=== PATIENT | female | born 1945 | race Caucasian/White ===

== ENCOUNTER → 2016-08-13 | Outpatient (CLI) | payer OTHER | END | disposition home or self-care (01) | LOC: CDC 10:48 | DX: R00.1 Bradycardia, unspecified (principal); G56.01 Carpal tunnel syndrome, right upper limb; M79.641 Pain in right hand | CPT/HCPCS: 93000 ==

== ENCOUNTER 2017-03-31 18:12 | Inpatient (IN) | payer OTHER ==
[~2017-03-31] VITALS: Ht 157.5 cm; Wt 83.7 kg
[2017-03-31 19:50] LABS: APPEARANCE CLEAR ((CLEAR)); BILIRUBIN NEGATIVE; BLOOD MODERATE; COLOR YELLOW ((YELLOW)); GLUCOSE (STRIP) NEGATIVE; KETONES NEGATIVE; LEUKOCYTES NEGATIVE; NITRITE NEGATIVE; PROTEIN (STRIP) NEGATIVE; SPECIFIC GRAVITY 1.019 (1.000-1.030); UROBILINOGEN 0.2 MG/DL (0.2-1.0)
[2017-03-31 20:16] LABS: HEMATOCRIT 34.5 % (36.0-46.0); HEMOGLOBIN 11.7 G/DL (11.9-15.5); MCH 31.9 PG (29.0-34.0); MCHC 33.9 G/DL (30.0-36.0); PLATELET COUNT 168 K/uL (156-360); RBC DIS.WIDTH-CV 12.8 % (11.8-14.6); RBC DIS.WIDTH-SD 44.7 % (39-53); RED BLOOD COUNT 3.67 M/uL (3.80-5.20); WHITE BLOOD COUNT 5.6 K/uL (4.1-10.2)
[2017-03-31 20:33] LABS: CHLORIDE 112 mEq/L (99-109); GLUCOSE 111 mg/dL (70-99); MAGNESIUM 1.9 mg/dL (1.3-2.7); POTASSIUM 4.1 mEq/L (3.7-5.4); SODIUM 143 mEq/L (136-147)
[2017-03-31 20:36] LABS: CREATININE 0.8 mg/dL (0.6-1.3); GFR ESTIMATE (CALCULATED) > 59 mL/min/
[2017-03-31 20:37] LABS: UREA NITROGEN (BUN) 19 mg/dL (9-23)
[2017-03-31 20:39] LABS: CREATINE KINASE 56 IU/L (1-294)
[2017-03-31 20:58] LABS: BACTERIA NONE SEEN /HPF; EPITHELIAL CELLS RARE /HPF; MUCUS TRACE /LPF; WHITE BLOOD CELLS 0-5 /HPF (0-5)
[2017-03-31 21:17] LABS: TROP-I INTERPRETATION NEGATIVE; TROPONIN-I < 0.01 ng/mL (0.0-0.30)
[2017-03-31] MEDS ORDERED: SYNTHROID50 MCG PO (21:53)
[2017-03-31] MEDS ORDERED: COZAAR100 MG PO (21:53)
[2017-03-31] MEDS ORDERED: OXYBUTYNIN CHLOR5 MG PO (21:54)
[2017-03-31 21:55] LABS: THYROTROPIN (TSH) 3.7 MIU/L (0.4-5.5)
[2017-04-01 06:30] LABS: BASOPHIL (%) 0.6 % (0-1); EOSINOPHIL (%) 4.4 % (0-5); EOSINOPHIL COUNT 0.2 K/uL (0-0.3); HEMATOCRIT 32.8 % (36.0-46.0); HEMOGLOBIN 11.2 G/DL (11.9-15.5); IMMATURE GRANULOCYTE (%) 0.4 % (0.0-0.7); LYMPHOCYTE (%) 33.5 % (15-42); LYMPHOCYTE COUNT 1.8 K/uL (1.0-2.8); MCHC 34.1 G/DL (30.0-36.0); MCV 93.7 FL (83-99); MONOCYTE (%) 6.1 % (3-12); MONOCYTE COUNT 0.3 K/uL (0-0.8); PLATELET COUNT 164 K/uL (156-360); RBC DIS.WIDTH-SD 44.9 % (39-53); WHITE BLOOD COUNT 5.4 K/uL (4.1-10.2)
[2017-04-01 06:39] LABS: ALBUMIN 3.5 g/dL (3.2-4.8); CHLORIDE 111 mEq/L (99-109); POTASSIUM 3.8 mEq/L (3.7-5.4); SODIUM 140 mEq/L (136-147)
[2017-04-01 06:42] LABS: GLUCOSE 90 mg/dL (70-99); TOTAL PROTEIN 5.3 g/dL (6.4-8.3)
[2017-04-01 06:44] LABS: TOTAL BILIRUBIN 0.4 mg/dL (0.0-1.0)
[2017-04-01 06:45] LABS: ALKALINE PHOSPHATASE 67 IU/L (3-129)
[2017-04-01 06:46] LABS: CREATININE 0.7 mg/dL (0.6-1.3); GFR ESTIMATE (CALCULATED) > 59 mL/min/
[2017-04-01 06:47] LABS: AST (GOT) 15 IU/L (2-34); DIRECT BILIRUBIN 0.2 mg/dL (0.0-0.3); UREA NITROGEN (BUN) 18 mg/dL (9-23)
[2017-04-01 06:48] LABS: ALT (GPT) 11 IU/L (3-49)
[2017-04-01 13:35] VITALS: BP 179/74
[2017-04-01 13:56] VITALS: BP 179/74
[2017-04-01 16:23] VITALS: BP 184/75
[2017-04-01 17:30] VITALS: BP 135/70
[2017-04-01 19:05] VITALS: BP 176/72
[2017-04-01 21:23] LABS: HEMATOCRIT 36.4 % (36.0-46.0); HEMOGLOBIN 12.3 G/DL (11.9-15.5); MCH 31.7 PG (29.0-34.0); MCHC 33.8 G/DL (30.0-36.0); MCV 93.8 FL (83-99); PLATELET COUNT 180 K/uL (156-360); RBC DIS.WIDTH-CV 13.1 % (11.8-14.6); RBC DIS.WIDTH-SD 45.1 % (39-53); RED BLOOD COUNT 3.88 M/uL (3.80-5.20); WHITE BLOOD COUNT 9.2 K/uL (4.1-10.2)
[2017-04-01 21:35] LABS: PTT 26.7 SEC (25-37)
[2017-04-01 21:46] LABS: HDL CHOLESTEROL 56 MG/DL (Desirable>=50); LDL CHOLESTEROL 90 mg/dL (Desirable<100); NON-HDL CHOLESTEROL 109 mg/dL (Desirable<160); TOTAL CHOLESTEROL 165 mg/dL (Desirable<200); TRIGLYCERIDES 94 MG/DL (Normal: <150)
[2017-04-01 21:47] LABS: TROP-I INTERPRETATION NEGATIVE; TROPONIN-I < 0.01 ng/mL (0.0-0.30)
[2017-04-01 22:00] VITALS: BP 156/70
[2017-04-02] VITALS (8 sets, daily range): BP systolic 129–163; BP diastolic 58–100
[2017-04-02 08:58] LABS: CHLORIDE 106 MEQ/L (99-109); CREATININE 0.7 MG/DL (0.6-1.3); GFR ESTIMATE (CALCULATED) > 59 mL/min/; POTASSIUM 3.8 MEQ/L (3.7-5.4); SODIUM 139 MEQ/L (136-147); UREA NITROGEN (BUN) 13 mg/dL (9-23)
[2017-04-02 09:07] LABS: GLUCOSE 114 mg/dL (70-99)
[2017-04-02 10:25] LABS: HEMOGLOBIN A1c (GLYCOHEMOGLOB) 5.1 % (Below 5.7)
[2017-04-03 05:09] VITALS: BP 130/60
[2017-04-03 11:32] VITALS: BP 135/63
[2017-04-03 15:14] VITALS: BP 152/68
[2017-04-03 19:48] VITALS: BP 144/65; BP 150/67; BP 159/73
[2017-04-03 20:52] VITALS: BP 144/65
[2017-04-03 20:53] VITALS: BP 150/67
[2017-04-04 00:54] VITALS: BP 164/96
[2017-04-04 03:33] VITALS: BP 132/67
[2017-04-04 07:22] VITALS: BP 146/66
[2017-04-04 10:56] VITALS: BP 133/71
[2017-04-04] MEDS ORDERED: ATORVASTATIN CA40 MG PO (12:35)
[2017-04-04] MEDS ORDERED: NIFEDIPINE10 MG PO (12:35)
[2017-04-04] MEDS ORDERED: LO-DOSE ASPIRIN81 M1 PO (12:36)
== END 2017-04-04 14:09 | DRG 308 ==
LOC: EME 18:12 → 4EAST 23:04 → EDOF 23:04 → ENRESERV 23:05 → 4EAST 04-01 13:28 → CANRESERV 04-01 21:15 → ENRESERV 04-01 21:15 → 4WEST 04-01 21:16 → ENRESERV 04-02 05:11 → 4EAST 04-02 07:17 → ENRESERV 04-03 12:29 → 5SOUTH 04-03 19:50
PROVIDERS: Hospitalist; Physician Assistant
DX: R00.1 Bradycardia, unspecified (principal); I63.542 Cerebral infarction due to unspecified occlusion or stenosis of left cerebellar artery; N32.81 Overactive bladder; R29.810 Facial weakness; E03.9 Hypothyroidism, unspecified; I10 Essential (primary) hypertension; J32.0 Chronic maxillary sinusitis; M71.21 Synovial cyst of popliteal space [Baker], right knee; I37.1 Nonrheumatic pulmonary valve insufficiency; I36.1 Nonrheumatic tricuspid (valve) insufficiency; I34.0 Nonrheumatic mitral (valve) insufficiency; K59.00 Constipation, unspecified; F41.9 Anxiety disorder, unspecified; M41.9 Scoliosis, unspecified; Z79.82 Long term (current) use of aspirin; Z90.710 Acquired absence of both cervix and uterus; Z83.3 Family history of diabetes mellitus; Z82.49 Family history of ischemic heart disease and other diseases of the circulatory system; Z82.3 Family history of stroke
CPT/HCPCS: 70450; 70496; 70498; 70551; 71046; 80048; 80061; 80076; 81003; 82550; 82948; 83036; 83735; 84439; 84443; 84484; 85025; 85027; 85610; 85730; 87641; 92523 GN; 92610 GN; 93005; 93306; 93970; 94799; 99281; 99284; J0360; J1650; J7030

== ENCOUNTER 2017-04-04 13:13 | Inpatient (IN) | payer OTHER ==
[~2017-04-04] VITALS: Ht 160 cm; Wt 83.1 kg
[~2017-04-04 13:13] MED LIST: ATORVASTATIN CA40 MG PO; COZAAR100 MG PO; LO-DOSE ASPIRIN81 M1 PO; NIFEDIPINE10 MG PO; OXYBUTYNIN CHLOR5 MG PO; SYNTHROID50 MCG PO
[2017-04-04 15:50] VITALS: BP 140/64
[2017-04-04 23:53] VITALS: BP 138/63
[2017-04-05 05:29] VITALS: BP 120/63
[2017-04-05 07:02] LABS: HEMATOCRIT 37.1 % (36.0-46.0); HEMOGLOBIN 12.2 G/DL (11.9-15.5); MCHC 32.9 G/DL (30.0-36.0); MCV 94.2 FL (83-99); PLATELET COUNT 165 K/uL (156-360); RBC DIS.WIDTH-CV 12.8 % (11.8-14.6); RBC DIS.WIDTH-SD 44.4 % (39-53); RED BLOOD COUNT 3.94 M/uL (3.80-5.20); WHITE BLOOD COUNT 6.2 K/uL (4.1-10.2)
[2017-04-05 07:11] LABS: ALBUMIN 3.4 G/DL (3.2-4.8); ALKALINE PHOSPHATASE 69 IU/L (3-129); ALT (GPT) 17 IU/L (3-49); AST (GOT) 24 IU/L (2-34); CHLORIDE 109 MEQ/L (99-109); CREATININE 0.9 MG/DL (0.6-1.3); GFR ESTIMATE (CALCULATED) > 59 mL/min/; GLUCOSE 111 mg/dL (70-99); SODIUM 139 MEQ/L (136-147); TOTAL BILIRUBIN 0.5 MG/DL (0.0-1.0); TOTAL PROTEIN 5.4 G/DL (6.4-8.3); UREA NITROGEN (BUN) 31 mg/dL (9-23)
[2017-04-05 17:00] VITALS: BP 137/68
[2017-04-06 05:58] VITALS: BP 134/65
[2017-04-06 15:23] VITALS: BP 130/63
[2017-04-07 06:05] VITALS: BP 133/68
[2017-04-07 15:19] VITALS: BP 135/76
[2017-04-08 05:13] VITALS: BP 118/64
[2017-04-08 16:32] VITALS: BP 133/84
[2017-04-09 06:34] VITALS: BP 153/63
[2017-04-09 17:01] VITALS: BP 153/67
[2017-04-10 05:59] VITALS: BP 137/94
[2017-04-10 15:34] VITALS: BP 131/60
[2017-04-11 04:41] VITALS: BP 114/52
[2017-04-11 15:07] VITALS: BP 136/63
[2017-04-12 05:39] LABS: BASOPHIL (%) 0.9 % (0-1); BASOPHIL COUNT 0.1 K/uL (0-0.1); EOSINOPHIL (%) 5.5 % (0-5); EOSINOPHIL COUNT 0.3 K/uL (0-0.3); HEMATOCRIT 32.8 % (36.0-46.0); HEMOGLOBIN 10.8 G/DL (11.9-15.5); IMMATURE GRANULOCYTE (%) 0.4 % (0.0-0.7); LYMPHOCYTE (%) 36.8 % (15-42); MCHC 32.9 G/DL (30.0-36.0); MCV 94.3 FL (83-99); MONOCYTE COUNT 0.4 K/uL (0-0.8); NEUTROPHIL (%) 48.4 % (45-76); NEUTROPHIL COUNT 2.7 K/uL (1.8-6.4); PLATELET COUNT 182 K/uL (156-360); RBC DIS.WIDTH-CV 12.5 % (11.8-14.6); RED BLOOD COUNT 3.48 M/uL (3.80-5.20); WHITE BLOOD COUNT 5.5 K/uL (4.1-10.2)
[2017-04-12 05:47] VITALS: BP 134/63
[2017-04-12 06:07] LABS: ALBUMIN 3.4 G/DL (3.2-4.8); ALKALINE PHOSPHATASE 77 IU/L (3-129); ALT (GPT) 28 IU/L (3-49); AST (GOT) 26 IU/L (2-34); CHLORIDE 109 MEQ/L (99-109); CREATININE 0.8 MG/DL (0.6-1.3); GFR ESTIMATE (CALCULATED) > 59 mL/min/; GLUCOSE 93 mg/dL (70-99); POTASSIUM 3.9 MEQ/L (3.7-5.4); SODIUM 140 MEQ/L (136-147); TOTAL BILIRUBIN 0.4 MG/DL (0.0-1.0); TOTAL PROTEIN 5.6 G/DL (6.4-8.3); UREA NITROGEN (BUN) 24 mg/dL (9-23)
[2017-04-12 15:34] VITALS: BP 135/61
[2017-04-13 05:23] VITALS: BP 141/64
[2017-04-13 15:44] VITALS: BP 147/65
[2017-04-14 05:31] VITALS: BP 163/78
[2017-04-14 15:49] VITALS: BP 147/65
[2017-04-15 05:37] VITALS: BP 147/67
[2017-04-15] MEDS ORDERED: ALPRAZOLAM0.25 M2 PO (11:11)
[2017-04-15] MEDS ORDERED: ATORVASTATIN CA40 MG PO (11:11)
[2017-04-15] MEDS ORDERED: NIFEDIPINE10 MG PO (11:11)
== END 2017-04-15 13:34 | disposition home health service (06) | DRG 57 ==
LOC: 3WEST 13:13 → ENPENDDIS 04-15 → 3WEST 04-15 13:34
PROVIDERS: Physical Medicine & Rehabilitation Pain Medicine; Psychiatry & Neurology Neurology
DX: I69.351 Hemiplegia and hemiparesis following cerebral infarction affecting right dominant side (principal); E03.9 Hypothyroidism, unspecified; I10 Essential (primary) hypertension; M41.9 Scoliosis, unspecified; I08.1 Rheumatic disorders of both mitral and tricuspid valves; R00.1 Bradycardia, unspecified; N32.81 Overactive bladder; M71.20 Synovial cyst of popliteal space [Baker], unspecified knee; M71.21 Synovial cyst of popliteal space [Baker], right knee; J32.0 Chronic maxillary sinusitis; R53.1 Weakness; Z74.09 Other reduced mobility; R26.9 Unspecified abnormalities of gait and mobility
CPT/HCPCS: 80053; 85025; 85027; 97110 GO; 97112 GO; 97530 GP; J1650